=== PATIENT | male | born 1970 | race Caucasian/White ===

== ENCOUNTER 2018-10-22 16:05 | Emergency (ER) | payer SELFPAY ==
--- NOTE | 2018-10-22 16:18 | NUR ---
1618---PATIENT CALLED TO BE TRIAGED, NO ANSWER. PT LWBS AT THIS TIME. 1623---2ND CALL, NO ANSWER. 1628---3RD CALL, NO ANSWER.
== END 2018-10-22 16:18 | disposition left against medical advice (07) ==
LOC: MED 16:05
DX: Z53.21 Procedure and treatment not carried out due to patient leaving prior to being seen by health care provider (principal)